=== PATIENT | male | born 1995 | race Caucasian/White ===

== ENCOUNTER 2016-11-10 23:47 | Emergency (ER) | payer OTHER ==
[~2016-11-10] VITALS: Ht 170.2 cm; Wt 75.1 kg
[~2016-11-10 23:47] MED LIST: AMPH1TAB58 PO; AMPH20CA3 PO
[2016-11-10 23:49] VITALS: TEMP 37.6; Ht 170.2 cm; Wt 75.1 kg
--- NOTE | 2016-11-11 00:10 | EMERGENCY ROOM VISIT NOTE ---
History Report prepared by Eleanor: Tereso Infante Under the Supervision of: Dr. Aashish Velazquez M.D. First contact with patient: 23:53 Chief Complaint: TESTICULAR PAIN Stated Complaint: A HERNIA IN LEFT TESTICLE History of Present Illness The patient is a 21 year old male who presents to the Emergency Room with complaints of left testicular pain that began a couple days ago. He rates his pain a 2/10 in severity. He has had a strange nodule in his left testicle for a long time, but it just recently started hurting while he was on the toilet for a long period of time. He denies any penile discharge. Source of History: patient Onset: a couple days ago Position: other (Left testicle) Symptom Intensity: 2/10 Quality: ache Timing: constant Note: He denies any penile discharge or other abnormal symptoms. Review of Systems See HPI for pertinent positives & negatives. A total of 10 systems reviewed and were otherwise negative. Past Medical & Surgical Medical Problems: (1) Asthma (2) Dislocation of left shoulder joint Surgical Problems: (1) No significant past surgical history Family History No significant family history Social History Smoking Status: Never Smoker Alcohol Use: occasionally Marital Status: single Occupation Status: [employer] student Current/Historical Medications Scheduled Amphetamine-Dextroamphetamine 20MG (Adderall Xr 20MG), 20 MG PO DAILY Scheduled PRN Amphetamine-Dextroamphetamine 5MG (Adderall 5MG), 5 MG PO Afternoon PRN for as needed Allergies Coded Allergies: No Known Allergies (Unverified , 11/11/16) Physical Exam Vital Signs Date Time Temp Pulse Resp B/P (MAP) Pulse Ox O2 Delivery O2 Flow Rate FiO2 11/11/16 02:09 58 18 126/67 98 Room Air 11/10/16 23:49 37.6 92 16 130/83 98 Room Air Physical Exam GENERAL: Patient is a healthy-appearing well-nourished male HEAD: Normocephalic atraumatic EYES: Ocular movements intact pupils equal and react to light OROPHARYNX mucous membranes are moist no exudates present no erythema or edema present NECK: Supple no nuchal rigidity CHEST: Good equal expansion LUNGS: Clear and equal to auscultation CARDIAC: Normal S1 and S2 ABDOMEN: Soft nontender no guarding BACK: No CVA tenderness GENITALS: No evidence of hernia or torsion on exam. EXTREMITIES: No pain upon palpation normal muscle strength in all groups no clubbing cyanosis or edema NEURO: Patient is following commands and answering questions appropriately. Alert and oriented x3 Cranial Nerves 2-12 grossly intact Medical Decision & Procedures ER Provider Diagnostic Interpretation: Ultrasound scrotal: Bilateral testicular vascular flow is present A few microcalcifications are noted within the right left testicle 3 x 3 x 1 mm area at the noted at the peripheral medial aspect of the left testicle of apparent cluster of calcifications is nonspecific. May follow up with nonemergent urology consult. Moderate appearing left varicocele. No hydrocele Laboratory Results Test 11/11/16 00:45 Urine Color YELLOW Urine Appearance CLEAR (CLEAR) Urine pH 6.5 (4.5-7.5) Urine Specific [place] 1.029 (1.000-1.030) Urine Protein NEG (NEG) Urine Glucose (UA) 1+ (NEG) Urine Ketones 1+ (NEG) Urine Occult Blood NEG (NEG) Urine Nitrite NEG (NEG) Urine Bilirubin NEG (NEG) Urine Urobilinogen NEG (NEG) Urine Leukocyte Esterase NEG (NEG) ED Course 2353: Past medical records reviewed. The patient was evaluated in room C3. A complete history and physical examination was performed. Medical Decision Differential diagnoses include orchitis and epiploic appendagitis. This patient is a 21-year-old male whose complaining of testicular lumps. The patient is afraid he has a hernia. He is extremely anxious and keeps asking and repeating the same questions over and over again. He was sent for an ultrasound which didn't testicular microcalcifications. Based on this I feel that the patient is safe enough to be discharged home for follow-up with his urologist.. Medication Reconcilliation Current Medication List: was personally reviewed by me Blood Pressure Screening Patient's blood pressure: Normal blood pressure Blood pressure disposition: Did not require urgent referral Impression Primary Impression: Epiploic appendagitis Scribe Attestation The scribe's documentation has been prepared under my direction and personally reviewed by me in its entirety. I confirm that the note above accurately reflects all work, treatment, procedures, and medical decision making performed by me. Departure Information Dispostion Home / Self-Care Referrals No Doctor, Assigned (PCP) Patient Instructions My [facility]
[2016-11-11 01:02] LABS: MANUAL MICROSCOPIC REQUIRED? NO; REVIEW REQ? NO; URINE APPEARANCE CLEAR (CLEAR); URINE BILIRUBIN NEG (NEG); URINE COLOR YELLOW; URINE NITRITE NEG (NEG); URINE PH 6.5 (4.5-7.5); URINE SPECIFIC GRAVITY 1.029 (1.000-1.030); UROBILINOGEN NEG (NEG); ZZUR CULT IF INDIC CLEAN CATCH NO
[2016-11-11 02:09] VITALS: BP 126/67; PULSE 58; O2SAT 98
--- NOTE | 2016-11-11 07:24 | DIAGNOSTIC IMAGING REPORT ---
(TESTICULAR) SCROTUM-CONT CLINICAL HISTORY: 21 years-old Male presenting with Pt c/o left testicular pain . TECHNIQUE: Real-time grayscale and color and spectral Doppler ultrasound imaging of the scrotum was performed. COMPARISON: None. FINDINGS: Right testis: Normal echogenicity and echotexture apart from few scattered microliths. Testis measures 5.1 x 2.5 x 2.4 cm. Normal color Doppler flow and arterial and venous waveforms in the testicular parenchyma. Epididymal head normal. No hydrocele. No varicocele. Left testis: Few scattered microliths and a clustered calcification at the upper pole measuring 3 x 3 x 1 mm located peripherally within the parenchyma. Testis measures 4.5 x 2.2 x 3.2 cm. Normal color Doppler flow and arterial and venous waveforms in the testicular parenchyma. Epididymal head normal. No hydrocele. Left varicocele. Symmetric perfusion of the testes. IMPRESSION: 1. Left varicocele emotional affect counts for the patient's symptomatology. 2. No evidence of testicular torsion. 3. A cluster of calcifications at the upper pole of the left testis. An underlying mass lesion is felt to be unlikely. This is most likely a result of either prior trauma or torsion of the appendix testis. Follow-up ultrasound could be considered to establish stability. Electronically signed by: Bora Link M.D. 11/11/2016 7:22 AM Dictated Date/Time: 11/11/2016 7:16 AM
== END 2016-11-11 02:45 | disposition home or self-care (01) ==
LOC: C.EDB 23:48 → C.EDC 11-11 02:45
DX: N50.812 Left testicular pain (principal); K63.89 Other specified diseases of intestine; Q43.8 Other specified congenital malformations of intestine